=== PATIENT | male | born 1945 | race Caucasian/White ===

== ENCOUNTER 2017-10-15 17:20 | Emergency (ER) | payer MEDICARE, BC ==
[2017-10-15 17:30] VITALS: BP 140/73
[2017-10-15 18:18] LABS: APPEARANCE,URINE CLOUDY; BILIRUBIN,URINE NEGATIVE (NEGATIVE); COLOR,URINE RED; GLUCOSE, URINE NEGATIVE (NEGATIVE); KETONES,URINE NEGATIVE (NEGATIVE); LEUKOCYTE ESTERASE,URINE TRACE (NEGATIVE); NITRITE,URINE NEGATIVE (NEGATIVE); PROTEIN,URINE 100 mg/dL (NEGATIVE); URINE SPECIFIC GRAVITY 1.014; UROBILINOGEN,URINE NEGATIVE mg/dL (<2.0)
--- NOTE | 2017-10-15 18:34 | ER Document Report ---
ED General - General Chief Complaint: Urinary Problem Stated Complaint: BLOOD IN URINE Time Seen by Provider: 10/15/17 17:48 Mode of Arrival: Ambulatory Information source: Patient Notes: 72-year-old male presents with complaints of hematuria. Patient notes symptoms started this afternoon suddenly. Patient notes that he had urinary tract symptoms over the past couple weeks but was seen by his primary care physician told he did not have UTI notes her symptoms improved and then today suddenly there was blood. He denies any fevers or chills admits to a tingling sensation in his urethra. He denies any difficulty urinating denies any pain TRAVEL OUTSIDE OF THE [place] IN LAST 30 DAYS: No - HPI Onset: This afternoon Onset/Duration: Sudden Quality of pain: Burning Severity: Mild Pain Level: 1 Associated symptoms: Other Exacerbated by: Other - Urination Relieved by: Denies Similar symptoms previously: No Recently seen / treated by doctor: Yes - Related Data Allergies/Adverse Reactions: No Known Allergies Allergy (Verified 09/11/13 15:38) Past Medical History - Social History Smoking Status: Current Every Day Smoker Cigarette use (# per day): Yes Chew tobacco use (# tins/day): No Smoking Education Provided: No Family History: Reviewed & Not Pertinent Patient has suicidal ideation: No Patient has homicidal ideation: No - Past Medical History Cardiac Medical History: Reports: Hx Hypercholesterolemia, Hx Hypertension Denies: Hx Coronary Artery Disease, Hx Heart Attack Pulmonary Medical History: Denies: Hx Asthma, Hx Bronchitis, Hx COPD, Hx Pneumonia Neurological Medical History: Denies: Hx Cerebrovascular Accident, Hx Seizures Renal/ Medical History: Denies: Hx Peritoneal Dialysis GI Medical History: Denies: Hx Hepatitis, Hx Hiatal Hernia, Hx Ulcer Musculoskeltal Medical History: Reports Hx Arthritis Infectious Medical History: Denies: Hx Hepatitis Past Surgical History: Reports: Hx Oral Surgery, Hx Orthopedic Surgery - knee replacement, shoulder. Denies: Hx Open Heart Surgery, Hx Pacemaker - Immunizations Hx Diphtheria, Pertussis, Tetanus Vaccination: Yes Review of Systems - Review of Systems Notes: REVIEW OF SYSTEMS: CONSTITUTIONAL : Denies fever, chills, or sweats. Denies recent illness. EENT: Denies eye, ear, throat, or mouth pain or symptoms. Denies nasal or sinus congestion or discharge. Denies throat, tongue, or mouth swelling or difficulty swallowing. CARDIOVASCULAR: Denies chest pain. Denies palpitations or racing or irregular heart beat. Denies ankle edema. RESPIRATORY: Denies cough, cold, or chest congestion. Denies shortness of breath, difficulty breathing, or wheezing. GASTROINTESTINAL: Denies abdominal pain or distention. Denies nausea, vomiting , or diarrhea. Denies blood in vomitus, stools, or per rectum. Denies black, tarry stools. Denies constipation. GENITOURINARY: Admits to blood in urine, burning upon urination MUSCULOSKELETAL: Denies back or neck pain or stiffness. Denies joint pain or swelling. SKIN: Denies rash, lesions or sores. HEMATOLOGIC : Denies easy bruising or bleeding. LYMPHATIC: Denies swollen, enlarged glands. NEUROLOGICAL: Denies confusion or altered mental status. Denies passing out or loss of consciousness. Denies dizziness or lightheadedness. Denies headache. Denies weakness or paralysis or loss of use of either side. Denies problems with gait or speech. Denies sensory loss, numbness, or tingling. Denies seizures. PSYCHIATRIC: Denies anxiety or stress. Denies depression, suicidal ideation, or homicidal ideation. ALL OTHER SYSTEMS REVIEWED AND NEGATIVE. Dictation was performed using [employer] voice recognition software PHYSICAL EXAMINATION: GENERAL: Well-appearing, well-nourished and in no acute distress. HEAD: Atraumatic, normocephalic. EYES: Pupils equal round and reactive to light, extraocular movements intact, sclera anicteric, conjunctiva are normal. ENT: Nares patent, oropharynx clear without exudates. Moist mucous membranes. NECK: Normal range of motion, supple without lymphadenopathy LUNGS: Breath sounds clear to auscultation bilaterally and equal. No wheezes rales or rhonchi. HEART: Regular rate and rhythm without murmurs ABDOMEN: Soft, nontender, nondistended abdomen. No guarding, no rebound. No masses appreciated. Musculoskeletal: Normal range of motion, no pitting or edema. No cyanosis. NEUROLOGICAL: Cranial nerves grossly intact. Normal speech, normal gait. Normal sensory, motor exams PSYCH: Normal mood, normal affect. SKIN: Warm, Dry, normal turgor, no rashes or lesions noted. Physical Exam - Vital signs Vitals: Temp Pulse Resp BP Pulse Ox 97.8 F 78 22 H 140/73 H 96 10/15/17 17:29 10/15/17 17:29 10/15/17 17:29 10/15/17 17:29 10/15/17 17:29 Course - Re-evaluation Re-evalutation: 10/15/17 18:33 Urinalysis is consistent with a UTI as well as hematuria, CT has been ordered to rule out any intra-abdominal masses 10/15/17 18:59 bladder mass noted on ct 6.4 cm 10/15/17 19:[address] Dias, who requests a mckenna placement, 10/15/17 21:05 Explained to the patient about this mass, we discussed the concerns patient otherwise is stable Mckenna was placed with a coud, I will have him follow-up with her urologist for further care Patient will be treated with Cipro for UTI After performing a Medical Screening Examination, I estimate there is LOW risk for ACUTE APPENDICITIS, BOWEL OBSTRUCTION, ACUTE CHOLECYSTITIS, PERFORATED DIVERTICULITIS, INCARCERATED HERNIA, PANCREATITIS, TESTICULAR TORSION or PERFORATED ULCER, thus I consider the discharge disposition reasonable. Also, there is no evidence or peritonitis, sepsis, or toxicity. I have reevaluated this patient multiple times and no significant life threatening changes are noted. The patient and I have discussed the diagnosis and risks, and we agree with discharging home with close follow-up with the understanding that symptoms and presentations can change. We also discussed returning to the Emergency Department immediately if new or worsening symptoms occur. We have discussed the symptoms which are most concerning (e.g., bloody stool, fever, changing or worsening pain, intractable vomiting - standard verbal up date) that necessitate immediate return. - Vital Signs Vital signs: Temp Pulse Resp BP Pulse Ox 97.8 F 78 22 H 140/73 H 96 10/15/17 17:29 10/15/17 17:29 10/15/17 17:29 10/15/17 17:29 10/15/17 17:29 - Laboratory Result Diagrams: 10/15/17 19:18 10/15/17 19:18 Laboratory results interpreted by me: 10/15/17 10/15/17 17:50 19:18 Chloride 108 H Carbon Dioxide 20 L BUN 23 H ALT 19 L Urine Protein 100 H Urine Blood LARGE H Ur Leukocyte Esterase TRACE H - Diagnostic Test Radiology reviewed: Image reviewed, Reports reviewed - CT results handed to the patient concerning for mass in the bladder Discharge - Discharge Clinical Impression: Bladder mass Hematuria Qualifiers: Hematuria type: unspecified type Qualified Code(s): R31.9 - Hematuria, unspecified UTI (urinary tract infection) Qualifiers: Urinary tract infection type: acute cystitis Hematuria presence: with hematuria Qualified Code(s): N30.01 - Acute cystitis with hematuria Condition: Stable Disposition: HOME, SELF-CARE Instructions: Urinary Tract Infection ([facility]) Additional Instructions: Dr. Robert Babin MD [address] Prescriptions: Ciprofloxacin HCl [Cipro 500 mg Tablet] 500 mg PO BID #20 tablet Referrals: [facility] [Provider Group] - Follow up as needed
--- NOTE | 2017-10-15 18:53 | RADIOLOGY REPORT (SQ) ---
EXAM DESCRIPTION: CT ABD/PELVIS NO ORAL OR IV COMPLETED DATE/TIME: 10/15/2017 6:23 pm REASON FOR STUDY: hematuria COMPARISON: None. TECHNIQUE: CT scan of the abdomen and pelvis performed without intravenous or oral contrast. Images reviewed with lung, soft tissue, and bone windows. Reconstructed coronal and sagittal MPR images revi ewed. All images stored on PACS. All CT scanners at this facility use dose modulation, iterative reconstruction, and/or weight based d osing when appropriate to reduce radiation dose to as low as reasonably achievable (ALARA). [facility]: Dose Right [facility]: CareDose [facility]: Dose Right [facility]: Teradose 4D [facility]: [employer] RADIATION DOSE: CT Rad equipment meets quality standard of care and radiation dose reduction techniq ues were employed. CTDIvol: 10.3 mGy. DLP: 590 mGy-cm.mGy. LIMITATIONS: None. FINDINGS: LOWER CHEST: No significant findings. No nodules or infiltrates. NON-CONTRASTED LIVER, SPLEEN, ADRENALS: Small inferior right liver cyst. Calcified granulomas scatte red throughout the spleen. Evaluation limited by lack of IV contrast. No identified significant mass es. PANCREAS: No masses. No peripancreatic inflammatory changes. GALLBLADDER: No identified stones by CT criteria. No inflammatory changes to suggest cholecystitis. RIGHT KIDNEY AND URETER: No suspicious masses. Assessment limited by lack of IV contrast. Small cecelia cifications. No hydronephrosis or hydroureter. LEFT KIDNEY AND URETER: No suspicious masses. Assessment limited by lack of IV contrast. Small calc ifications. No hydronephrosis or hydroureter. AORTA AND RETROPERITONEUM: No aneurysm. No retroperitoneal masses or adenopathy. BOWEL AND PERITONEAL CAVITY: No obvious masses or inflammatory changes. No free fluid. APPENDIX: Normal. PELVIS, BLADDER, AND ABDOMINAL WALL:No free fluid. 6.4 cm multilobulated endoluminal bladder mass wi th some small marginal calcifications. BONES: No acute findings. OTHER: No other significant finding. IMPRESSION: 6.4 cm multilobulated endoluminal bladder mass with some small marginal calcifications. Urology consultation recommended. COMMENT: Quality ID # [id number]: Final reports with documentation of one or more dose reduction techniques (e.g., Automated exposure control, adjustment of the mA and/or kV according to patient size, use of iterative reconstruction technique) TECHNICAL DOCUMENTATION: JOB ID: [id number] [place]-72 2010 [facility], [place] [facility] [employer]- All Rights Reserved
[2017-10-15 19:39] LABS: ABSOLUTE BASOPHILS # (AUTO) 0.1 10^3/uL (0.0-0.2); ABSOLUTE EOSINOPHILS # (AUTO) 0.3 10^3/uL (0.0-0.6); ABSOLUTE MONOCYTES (AUTO) 0.8 10^3/uL (0.1-1.4); ABSOLUTE NEUT (AUTO) 5.6 10^3/uL (1.7-8.2); BASOPHILS % (AUTO) 0.7 % (0-2); EOSINOPHILS % (AUTO) 3.3 % (0-6); HEMATOCRIT 45.5 % (37.9-51.0); HEMOGLOBIN 15.9 g/dL (13.5-17.0); LYMPHOCYTES % (AUTO) 30.5 % (13-45); MEAN CORPUSCULAR HEMOGLOBIN 32.3 pg (27.0-33.4); MEAN CORPUSCULAR VOLUME 92 fl (80-97); MONOCYTES % (AUTO) 7.8 % (3-13); PLATELET COUNT 284 10^3/uL (150-450); RED BLOOD COUNT 4.94 10^6/uL (4.35-5.55); RED CELL DISTRIBUTION WIDTH 13.9 % (11.5-14.0); SEGMENTED NEUTROPHILS % (AUTO) 57.7 % (42-78); TOTAL CELLS COUNTED % (AUTO) 100 %; WHITE BLOOD COUNT 9.7 10^3/uL (4.0-10.5)
[2017-10-15 20:04] LABS: ALANINE AMINOTRANSFERASE 19 U/L (21-72); ALBUMIN 4.2 g/dL (3.5-5.0); ALKALINE PHOSPHATASE 86 U/L (38-126); ANION GAP 12 (5-19); ASPARTATE AMINO TRANSFERASE 20 U/L (17-59); BILIRUBIN,DIRECT 0.4 mg/dL (0.0-0.4); BILIRUBIN,TOTAL 0.4 mg/dL (0.2-1.3); BLOOD UREA NITROGEN 23 mg/dL (7-20); CALCIUM 9.6 mg/dL (8.4-10.2); CARBON DIOXIDE 20 mmol/L (22-30); CHLORIDE 108 mmol/L (98-107); GLUCOSE 88 mg/dL (75-110); POTASSIUM 4.6 mmol/L (3.6-5.0); SODIUM 140.1 mmol/L (137-145); TOTAL PROTEIN 7.2 g/dL (6.3-8.2)
== END 2017-10-15 20:15 | disposition home or self-care (01) ==
LOC: ER 17:20
DX: N30.01 Acute cystitis with hematuria (principal); N32.89 Other specified disorders of bladder; F17.210 Nicotine dependence, cigarettes, uncomplicated; E78.00 Pure hypercholesterolemia, unspecified; I10 Essential (primary) hypertension; Z96.659 Presence of unspecified artificial knee joint
CPT/HCPCS: 36415; 51702; 74176; 80053; 81001; 85025; 99284

== ENCOUNTER → 2018-03-02 | Outpatient (CLI) | payer MEDICARE, BC ==
[2018-03-02 09:56] LABS: HEMATOCRIT 47.4 % (37.9-51.0); HEMOGLOBIN 16.2 g/dL (13.5-17.0); MEAN CORPUSCULAR HGB CONC 34.1 g/dL (32.0-36.0); MEAN CORPUSCULAR VOLUME 91 fl (80-97); PLATELET COUNT 250 10^3/uL (150-450); RED BLOOD COUNT 5.21 10^6/uL (4.35-5.55); RED CELL DISTRIBUTION WIDTH 14.3 % (11.5-14.0); WHITE BLOOD COUNT 5.9 10^3/uL (4.0-10.5)
--- NOTE | 2018-03-02 09:58 | EKG REPORT ---
SEVERITY:- ABNORMAL ECG - SINUS RHYTHM LEFT ANTERIOR FASCICULAR BLOCK : Confirmed by: Samantha Garcia MD 02-Mar-2018 09:57:30
[2018-03-02 10:03] LABS: INTERNATIONAL RATION (INR) 0.94; PARTIAL THROMBOPLASTIN TIME 32.1 SEC (23.5-35.8)
[2018-03-02 10:36] LABS: ANION GAP 12 (5-19); BLOOD UREA NITROGEN 16 mg/dL (7-20); CALCIUM 9.2 mg/dL (8.4-10.2); CARBON DIOXIDE 24 mmol/L (22-30); CHLORIDE 109 mmol/L (98-107); GLUCOSE 101 mg/dL (75-110); POTASSIUM 4.8 mmol/L (3.6-5.0); SODIUM 144.6 mmol/L (137-145)
== END ==
LOC: OD 08:21
PROVIDERS: ATTEND Urology
DX: Z01.810 Encounter for preprocedural cardiovascular examination (principal); Z01.812 Encounter for preprocedural laboratory examination; Z01.818 Encounter for other preprocedural examination; D49.4 Neoplasm of unspecified behavior of bladder
CPT/HCPCS: 36415; 80048; 85027; 85610; 85730; 87086; 93005; 93010

== ENCOUNTER → 2018-06-25 | Outpatient (CLI) | payer MEDICARE, BC | LOC: OD 08:35 | PROVIDERS: ATTEND Urology | DX: N40.1 Benign prostatic hyperplasia with lower urinary tract symptoms (principal); R35.0 Frequency of micturition | CPT/HCPCS: 36415; 84153 ==

== ENCOUNTER 2019-10-10 10:10 | Inpatient (IN) | payer MEDICARE, BC ==
[2019-10-10] MEDS ORDERED: ONDANSETRON HCL INJ/PF 4 MG/2 ML SDV IV ONE ×2 (10:44→11:49)
[2019-10-10] MEDS ORDERED: NORMAL SALINE 1000 ML 1,000 ML IV ONE ×4 (10:45→15:16)
--- NOTE | 2019-10-10 10:47 | ER Document Report ---
ED Medical Screen (RME) - General Chief Complaint: Flank Pain Stated Complaint: SHOULDER PAIN, BACK PAIN,FEVER Time Seen by Provider: 10/10/19 10:40 Primary Care Provider: TAWNY,REED [Primary Care Provider] - Follow up as needed Notes: Patient is a 74-year-old male who presents emergency department with a chief complaint of flank pain. Patient reports he is currently being treated for bladder cancer. Last chemo treatment was Thursday at [facility]. He reports on Thursday he developed bilateral flank pain that radiates into his shoulders. Patient reports fever, chills, urinary frequency and urgency. Patient reports generalized fatigue. Patient has vomited 1-2 times since yesterday. Patient was taking Bactrim but his doctor switched him to Macrobid for UTI. TRAVEL OUTSIDE OF THE [place] IN LAST 30 DAYS: No - Related Data Allergies/Adverse Reactions: No Known Allergies Allergy (Verified 10/10/19 10:28) Home Medications: [employer] Past Medical History - Social History Chew tobacco use (# tins/day): No Frequency of alcohol use: Rare Drug Abuse: None - Past Medical History Cardiac Medical History: Reports: Hx Hypercholesterolemia, Hx Hypertension Denies: Hx Coronary Artery Disease, Hx Heart Attack Pulmonary Medical History: Denies: Hx Asthma, Hx Bronchitis, Hx COPD, Hx Pneumonia Neurological Medical History: Denies: Hx Cerebrovascular Accident, Hx Seizures Renal/ Medical History: Denies: Hx Peritoneal Dialysis GI Medical History: Denies: Hx Hepatitis, Hx Hiatal Hernia, Hx Ulcer Musculoskeltal Medical History: Reports Hx Arthritis Infectious Medical History: Denies: Hx Hepatitis Past Surgical History: Reports: Hx Oral Surgery, Hx Orthopedic Surgery - knee replacement, shoulder. Denies: Hx Open Heart Surgery, Hx Pacemaker - Immunizations Hx Diphtheria, Pertussis, Tetanus Vaccination: Yes Physical Exam - Vital signs Vitals: Temp Pulse Resp BP Pulse Ox 99.5 F 91 21 H 113/65 100 10/10/19 10:24 10/10/19 10:24 10/10/19 10:24 10/10/19 10:24 10/10/19 10:24 Course - Re-evaluation Re-evalutation: 10/10/19 10:46 Patient dry heaving in triage. Will initiate blood work, IV fluids, antinausea medication. Family denies history of congestive heart failure. Patient's not tachycardic, hypotensive or febrile currently. Last dose of ibuprofen was last night at 8 PM. I have greeted and performed a rapid initial assessment of this patient. A comprehensive ED assessment and evaluation of the patient, analysis of test results and completion of the medical decision making process will be conducted by additional ED providers. - Vital Signs Vital signs: Temp Pulse Resp BP Pulse Ox 99.5 F 91 21 H 113/65 100 10/10/19 10:24 10/10/19 10:24 10/10/19 10:24 10/10/19 10:10/10/19 10:24 Doctor's Discharge - Discharge Referrals: LOCALMD,NO [Primary Care Provider] - Follow up as needed
[2019-10-10 11:22] LABS: HEMATOCRIT 34.1 % (37.9-51.0); HEMOGLOBIN 11.8 g/dL (13.5-17.0); MEAN CORPUSCULAR HEMOGLOBIN 32.6 pg (27.0-33.4); MEAN CORPUSCULAR HGB CONC 34.5 g/dL (32.0-36.0); MEAN CORPUSCULAR VOLUME 95 fl (80-97); PLATELET COUNT 383 10^3/uL (150-450); RED BLOOD COUNT 3.61 10^6/uL (4.35-5.55); RED CELL DISTRIBUTION WIDTH 14.2 % (11.5-14.0); WHITE BLOOD COUNT 17.1 10^3/uL (4.0-10.5)
[2019-10-10 11:39] LABS: APPEARANCE,URINE CLOUDY; BILIRUBIN,URINE NEGATIVE (NEGATIVE); GLUCOSE, URINE NEGATIVE (NEGATIVE); KETONES,URINE TRACE mg/dL (NEGATIVE); LEUKOCYTE ESTERASE,URINE LARGE (NEGATIVE); NITRITE,URINE NEGATIVE (NEGATIVE); PROTEIN,URINE 100 mg/dL (NEGATIVE); URINE SPECIFIC GRAVITY 1.014; UROBILINOGEN,URINE NEGATIVE mg/dL (<2.0)
[2019-10-10 11:40] LABS: COLOR,URINE YELLOW
[2019-10-10 11:43] LABS: ALBUMIN 3.7 g/dL (3.5-5.0); ALKALINE PHOSPHATASE 79 U/L (38-126); ANION GAP 14 (5-19); ASPARTATE AMINO TRANSFERASE 66 U/L (17-59); BILIRUBIN,DIRECT 0.3 mg/dL (0.0-0.4); BILIRUBIN,TOTAL 1.3 mg/dL (0.2-1.3); BLOOD UREA NITROGEN 18 mg/dL (7-20); CALCIUM 9.2 mg/dL (8.4-10.2); CARBON DIOXIDE 19 mmol/L (22-30); CHLORIDE 101 mmol/L (98-107); GLUCOSE 149 mg/dL (75-110); POTASSIUM 4.9 mmol/L (3.6-5.0); TOTAL PROTEIN 7.1 g/dL (6.3-8.2)
[2019-10-10] MEDS ORDERED: FENTANYL CITRATE INJ/PF 100 MCG/2 ML AMPUL IV ONE ×2 (11:49→14:30)
[2019-10-10 11:57] LABS: ABSOLUTE LYMPHOCYTES# (MANUAL) 0.5 10^3/uL (0.5-4.7); ABSOLUTE MONOCYTES # (MANUAL) 0.9 10^3/uL (0.1-1.4); BAND NEUTROPHILS % (MANUAL) 1 % (3-5); BASOPHILS % (MANUAL) 0 % (0-2); EOSINOPHILS % (MANUAL) 0 % (0-6); LYMPHOCYTES % (MANUAL) 3 % (13-45); MONOCYTES % (MANUAL) 5 % (3-13); SEGMENTED NEUTROPHILS % (MAN) 91 % (42-78); TOTAL CELLS COUNTED 100; TOXIC VACUOLATION PRESENT
[2019-10-10 11:58] LABS: ANISOCYTOSIS SLIGHT; PLATELET COMMENT ADEQUATE; PLATELET LARGE PRESENT; TOXIC GRANULATION SLIGHT
[2019-10-10] MEDS ORDERED: CEFTRIAXONE 1 GM/D5W RTU 1 GM/50 ML RTUPB IV ONE (13:02)
--- NOTE | 2019-10-10 13:05 | RADIOLOGY REPORT (SQ) ---
EXAM DESCRIPTION: CT ABD/PELVIS WITH IV ONLY COMPLETED DATE/TIME: 10/10/2019 12:41 pm REASON FOR STUDY: bladder cancer/ n/v abd pain COMPARISON: CT of the abdomen and pelvis without contrast from 10/15/2017. TECHNIQUE: CT scan of the abdomen and pelvis performed using helical scanning technique with dynamic intravenous contrast injection. No oral contrast. Images reviewed with lung, soft tissue, and bone windows. Reconstructed coronal and sagittal MPR images reviewed. Delayed images for evaluation of the urinary system also acquired. All images stored on PACS. All CT scanners at this facility use dose modulation, iterative reconstruction, and/or weight based d osing when appropriate to reduce radiation dose to as low as reasonably achievable (ALARA). [facility]: Dose Right [facility]: CareDose [facility]: Dose Right [facility]: Teradose 4D [facility]: Neotropix CONTRAST TYPE AND DOSE: Contrast/concentration: Isovue 350.00 mg/ml; Total Contrast Delivered: 81.3 ml; Total Saline Delivered: 20.0 ml RENAL FUNCTION: Creatinine 1.13 milligrams/deciliter LIMITATIONS: None. FINDINGS: LOWER CHEST: Refer to the separate report of the CT of the chest. LIVER: The morphology of the liver is non cirrhotic. The subcentimeter hypodensity in the hepatic do me is too small to characterize. There is no dilatation of the intrahepatic bile ducts. The punctat e calcifications in the hepatic dome could represent granulomata. SPLEEN: Calcified splenic granulomata. There is no splenomegaly or splenic mass. PANCREAS: No acute abnormality. GALLBLADDER: No abnormality that is apparent on CT. ADRENAL GLANDS: No mass or asymmetry. RIGHT KIDNEY AND URETER: Mild inflammatory stranding of the perinephric fat and hydroureter without h ydronephrosis, nephrolithiasis or ureterolithiasis. There is no solid renal mass. LEFT KIDNEY AND URETER: Mild inflammatory stranding of the perinephric fat and hydroureter without hy dronephrosis, nephrolithiasis or ureterolithiasis. The 1.7 x 1.4 cm hypodensity in the lateral live x of the lower pole could represent a simple cyst. There is no solid renal mass. 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 RETROPERITONEUM: No retroperitoneal adenopathy, hemorrhage or mass. BOWEL AND PERITONEAL CAVITY: No bowel obstruction, bowel wall thickening or pericolonic/ perienteric inflammation. There is no mesenteric adenopathy, free intraperitoneal fluid or mesenteric/ omental i nflammation APPENDIX: Normal. PELVIS: The prostate gland is enlarged and heterogeneous. The wall of the urinary bladder is asymmet rically thickened. 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 There is no acute fracture or osseous lesion. OTHER: No other finding. IMPRESSION: 1. Mild bilateral inflammatory stranding of the perinephric fat and hydroureter without hydronephrosis, nephrolithiasis or ureterolithiasis. The wall of the urinary bladder is asymmetrical ly thickened - it is unclear if the bladder wall thickening represents the sequela of prior treatment or an acute cystitis/ascending urinary tract infection. Correlation with urinalysis is recommended. 2. 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 TECHNICAL DOCUMENTATION: JOB ID: [id number] Quality ID # [id number]: Final reports with documentation of one or more dose reduction techniques (e.g., Au tomated exposure control, adjustment of the mA and/or kV according to patient size, use of iterative reconstruction technique) 2010 [employer]- All Rights Reserved Reading location - IP/workstation name: [email or web address]
--- NOTE | 2019-10-10 13:23 | RADIOLOGY REPORT (SQ) ---
EXAM DESCRIPTION: CT CHEST WITH COMPLETED DATE/TIME: 10/10/2019 12:41 pm REASON FOR STUDY: pain in back/ shoulders COMPARISON: None. TECHNIQUE: CT scan of the chest performed using helical scanning technique with dynamic intravenous contrast injection. Images reviewed with lung, soft tissue and bone windows. Reconstructed coronal and sagittal MPR and MIP images reviewed. All images stored on PACS. All CT scanners at this facility use dose modulation, iterative reconstruction, and/or weight based d osing when appropriate to reduce radiation dose to as low as reasonably achievable (ALARA). [facility]: Dose Right [facility]: CareDose [facility]: Dose Right [facility]: Teradose 4D [facility]: [employer] CONTRAST TYPE AND DOSE: 89 mL Omnipaque 350- low osmolar. RENAL FUNCTION: Creatinine 1.13 milligrams/deciliter RADIATION DOSE: CT Rad equipment meets quality standard of care and radiation dose reduction techniq ues were employed. CTDIvol: 10.9 - 12.0 mGy. DLP: 1520 mGy-cm. . LIMITATIONS: None. FINDINGS: LUNGS AND PLEURA: There is mild to moderate upper lobe predominant centrilobular emphysema . The trachea main bronchi are patent. There is no bronchiectasis or segmental mucus plugging. The re is no consolidation, ground-glass opacification, pleural effusion or solid noncalcified greater th an 6 mm pulmonary nodule. HILAR AND MEDIASTINAL STRUCTURES: There are calcified nonenlarged mediastinal and right hilar lymph nodes. HEART AND VASCULAR STRUCTURES: No aneurysm or dissection of the abdominal aorta. No cardiomegaly or pericardial effusion. HARDWARE: None in the chest. UPPER ABDOMEN: Refer to the separate report of the CT of the abdomen. THYROID AND OTHER SOFT TISSUES: No masses or adenopathy. BONES: No acute findings. OTHER: No other finding. IMPRESSION: No acute intra-abdominal abnormality. TECHNICAL DOCUMENTATION: JOB ID: [id number] Quality ID # [id number]: Final reports with documentation of one or more dose reduction techniques (e.g., Au tomated exposure control, adjustment of the mA and/or kV according to patient size, use of iterative reconstruction technique) 2010 [employer]- All Rights Reserved Reading location - IP/workstation name: [email or web address]
--- NOTE | 2019-10-10 13:31 | ER Document Report ---
Entered by JERRICA LIVE SCRIBE 10/10/19 [id number] Acting as scribe for:DAVIE COSBY DO ED General - General Chief Complaint: Flank Pain Stated Complaint: SHOULDER PAIN, BACK PAIN,FEVER Time Seen by Provider: 10/10/19 10:40 Primary Care Provider: REED HECTOR [NO LOCAL MD] - Follow up as needed Mode of Arrival: Ambulatory Information source: Patient Notes: This 74 year old male patient with bladder cancer followed by heme-onc at [facility] presents to the emergency department today with complaints of vomiting and generalized myalgias for the last several days. Patient states the first symptom he had was upper back and left shoulder pain and the vomiting, fevers, and chills began shortly after. Patient denies any diarrhea, abdominal pain, chest pain, or shortness of breath. TRAVEL OUTSIDE OF THE [place] IN LAST 30 DAYS: No - Related Data Allergies/Adverse Reactions: No Known Allergies Allergy (Verified 10/10/19 10:28) Home Medications: [employer] Past Medical History - General Information source: Patient - Social History Smoking Status: Former Smoker Cigarette use (# per day): No Chew tobacco use (# tins/day): No Frequency of alcohol use: Rare Drug Abuse: None Lives with: Family Family History: Reviewed & Not Pertinent Patient has suicidal ideation: No Patient has homicidal ideation: No - Past Medical History Cardiac Medical History: Reports: Hx Hypercholesterolemia, Hx Hypertension Pulmonary Medical History: Malignancy Medical History: Reports Other - Bladder cancer Musculoskeletal Medical History: Reports Hx Arthritis Past Surgical History: Reports: Hx Oral Surgery, Hx Orthopedic Surgery - knee replacement, shoulder - Immunizations Hx Diphtheria, Pertussis, Tetanus Vaccination: Yes Review of Systems - Review of Systems Constitutional: See HPI, Chills, Fever EENT: No symptoms reported Cardiovascular: denies: Chest pain Respiratory: denies: Short of breath Gastrointestinal: See HPI, Vomiting. denies: Abdominal pain, Diarrhea Genitourinary: No symptoms reported Male Genitourinary: No symptoms reported Musculoskeletal: See HPI, Muscle pain, Muscle stiffness Skin: No symptoms reported Hematologic/Lymphatic: No symptoms reported Neurological/Psychological: No symptoms reported -: Yes All other systems reviewed and negative Physical Exam - Vital signs Vitals: Temp Pulse Resp BP Pulse Ox 99.5 F 91 21 H 113/65 100 10/10/19 10:24 10/10/19 10:24 10/10/19 10:24 10/10/19 10:24 10/10/19 10:24 - Notes Notes: Physical Exam: General: Alert, appears uncomfortable. HEENT: Normocephalic. Atraumatic. PERRL. Extraocular movements intact. Oropharynx clear. Dry mucous membranes. Neck: Supple. Non-tender. Respiratory: No respiratory distress. Clear and equal breath sounds bilaterally. Cardiovascular: Regular rate and rhythm. Abdominal: Normal Inspection. Non-tender. No distension. Normal Bowel Sounds. Back: No gross abnormalities. Extremities: Moves all four extremities. Upper extremities: Normal inspection. Normal ROM. Lower extremities: Normal inspection. No edema. Normal ROM. Neurological: Normal cognition. AAOx4. Normal speech. Psychological: Normal affect. Normal Mood. Skin: Warm. Dry. Normal color. Course - Re-evaluation Re-evalutation: 10/10/19 13:38 MDM 74 year old male with bladder cancer seen with nausea vomiting and fever. Workup here is consistent with Pyelonephritis. Feels better after treatment here. - Vital Signs Vital signs: Temp Pulse Resp BP Pulse Ox 99.5 F 91 21 H 113/65 100 10/10/19 10:24 10/10/19 10:24 10/10/19 10:24 10/10/19 10:24 10/10/19 10:24 - Laboratory Result Diagrams: 10/10/19 11:03 10/10/19 11:03 Laboratory results interpreted by me: 10/10/19 10/10/19 10/10/19 11:03 11:03 11:03 WBC 17.1 H RBC 3.61 L Hgb 11.8 L Hct 34.1 L RDW 14.2 H Seg Neuts % (Manual) 91 H Band Neutrophils % 1 L Lymphocytes % (Manual) 3 L Abs Neuts (Manual) 15.7 H Sodium 133.5 L Carbon Dioxide 19 L Glucose 149 H AST 66 H ALT 78 H Urine Protein 100 H Urine Ketones TRACE H Urine Blood MODERATE H Ur Leukocyte Esterase LARGE H - Diagnostic Test Radiology reviewed: Reports reviewed - EKG Interpretation by Me EKG shows normal: Sinus rhythm Rate: Normal Rhythm: NSR [place]/QRS: Left axis deviation - NSR Left axis [address] elevation or depression my interpretation. Discharge - Discharge Clinical Impression: Pyelonephritis Condition: Good Disposition: ADMITTED OBSERVATION Admitting Provider: Eduardo (Hospitalist) Unit Admitted: Medical Floor Referrals: LOCALMD,NO [NO LOCAL MD] - Follow up as needed I personally performed the services described in the documentation, reviewed and edited the documentation which was dictated to the scribe in my presence, and it accurately records my words and actions.
[2019-10-10] MEDS ORDERED: ONDANSETRON HCL INJ/PF 4 MG/2 ML SDV IV PRN (15:07)
[2019-10-10] MEDS ORDERED: PROMETHAZINE HCL INJ 25 MG/1 ML VIAL IV PRN (15:07)
[2019-10-10] MEDS ORDERED: VANCOMYCIN HCL INJ 1000 MG VIAL IV ONE (15:16)
[2019-10-10] MEDS ORDERED: LEVOFLOXACIN 750 MG/D5W RTU 750 MG/150 ML RTUPB IV ONE (15:19)
[2019-10-10] MEDS ORDERED: OXYBUTYNIN CHLORIDE 5 MG TABLET PO PRN (15:20)
--- NOTE | 2019-10-10 15:40 | PDOC H&P ---
History of Present Illness Admission Date/PCP: 10/10/19 13:47 NAWAF HERRON DO Patient complains of: Chills, myalgias, dysuria History of Present Illness: ZACH DUMONT is a 74 year old male with a history of bladder cancer currently receiving intravesicular gemcitabine every week last dose on Thursday, hypertension, who presents to the hospital with complains of significant chills and fever which began on Thursday. Patient also endorses some dysuria. Denies polyuria or urinary urgency. Denies abdominal pain but does admits to back pain involving his upper back as well as his flanks. Patient denies any headaches. Of note patient was diagnosed with bladder cancer 2 years ago and follows with a urologist at [facility] where he gets his chemotherapy via cystoscopy with intravesicular gemcitabine administration which was done last on Thursday. Patient also admits to having urinary tract infection and is currently being treated with nitrofurantoin which he started after a course of Bactrim. Patient also complains of some shoulder pain bilaterally but currently rates it 2/5. Patient currently having rigors at time of my assessment. Being admitted for concern for pyelonephritis. Past Medical History Cardiac Medical History: Reports: Hyperlipidema, Hypertension Denies: Congestive Heart Failure, Coronary Artery Disease, Myocardial Infarction Pulmonary Medical History: Denies: Asthma, Bronchitis, Chronic Obstructive Pulmonary Disease (COPD), Pneumonia Neurological Medical History: Denies: Seizures Malignancy Medical History: Reports: Other - Bladder cancer GI Medical History: Denies: Hepatitis, Hiatal Hernia Musculoskeltal Medical History: Reports: Arthritis Hematology: Denies: Anemia, Sickle Cell Disease Past Surgical History Past Surgical History: Reports: Orthopedic Surgery - knee replacement, shoulder Denies: Pacemaker Social History Lives with: Family Smoking Status: Former Smoker Electronic Cigarette use?: No Hx Recreational Drug Use: No - Advance Directive Resuscitation Status: Full Code Family History Family History: Hypertension Parental Family History Reviewed: Yes Children Family History Reviewed: NA Sibling(s) Family History Reviewed.: NA Medication/Allergy Home Medications: Amlodipine Besylate [Norvasc 5 mg Tablet] 5 mg PO DAILY 10/10/19 Aspirin [Ecotrin 81 mg EC Tablet] 81 mg PO DAILY 10/10/19 Fluticasone Propionate [Flonase Nasal Mcclave 50 Mcg/Mcclave 16 gm] 1 spray NAREB DAILY 10/10/19 Lisinopril 20 mg PO DAILY 10/10/19 Multivit-Min/Folic/Vit K/Lycop [One-A-Day Men's 50+ Tablet] 1 each PO DAILY 10/10/19 Naproxen Sodium [Aleve] 440 mg PO DAILY 10/10/19 Nitrofurantoin Monohyd/M-Cryst [Macrobid 100 mg Capsule] 100 mg PO DAILY 10/10/19 Oxybutynin Chloride [Oxybutynin Chloride ER] 5 mg PO DAILY 10/10/19 Tamsulosin HCl [Flomax 0.4 mg Cap.sr] 0.4 mg PO DAILY 10/10/19 Allergies/Adverse Reactions: No Known Allergies Allergy (Verified 10/10/19 10:28) Review of Systems Constitutional: PRESENT: chills, fever(s). ABSENT: headache(s) Eyes: ABSENT: visual disturbances Nose, Mouth, and Throat: ABSENT: headache(s) Cardiovascular: ABSENT: chest pain Respiratory: ABSENT: dyspnea Gastrointestinal: PRESENT: nausea, vomiting. ABSENT: abdominal pain, diarrhea Genitourinary: PRESENT: dysuria, nocturia. ABSENT: hematuria Integumentary: PRESENT: diaphoresis Neurological: ABSENT: confusion Endocrine: ABSENT: polyuria Hematologic/Lymphatic: ABSENT: easy bleeding Physical Exam Vital Signs: Temp Pulse Resp BP Pulse Ox 98.7 F 106 H 24 H 143/73 H 95 10/10/19 14:50 10/10/19 14:50 10/10/19 14:50 10/10/19 14:50 10/10/19 14:50 Intake & Output 10/09/19 10/10/19 10/11/19 06:59 06:59 06:59 Intake Total 1050 Balance 1050 Weight 78.4 kg General appearance: PRESENT: other - Currently having significant rigors Head exam: PRESENT: normocephalic Mouth exam: PRESENT: neck supple Neck exam: ABSENT: JVD Respiratory exam: PRESENT: clear to auscultation mervin, symmetrical, unlabored. ABSENT: tachypnea, wheezes Cardiovascular exam: PRESENT: +S1, +S2, tachycardia. ABSENT: irregular rhythm GI/Abdominal exam: PRESENT: normal bowel sounds, soft, other - Only minimal CVA tenderness. ABSENT: rebound, rigid, tenderness Extremities exam: ABSENT: pedal edema Musculoskeletal exam: PRESENT: other - No significant tenderness on palpation of patient's shoulders bilaterally.patient had just received fentanyl in the ER shortly before Neurological exam: PRESENT: alert, awake, oriented to person, oriented to place, oriented to time, oriented to situation. ABSENT: ataxia, aphasic Psychiatric exam: ABSENT: agitated Focused psych exam: ABSENT: pressured speech Skin exam: PRESENT: other - Flushed skin Results Laboratory Results: 10/10/19 11:03 10/10/19 11:03 10/10/19 10/10/19 10/10/19 11:03 11:03 11:03 WBC 17.1 H RBC 3.61 L Hgb 11.8 L Hct 34.1 L MCV 95 MCH 32.6 MCHC 34.5 RDW 14.2 H Plt Count 383 Seg Neutrophils % Not Reportable Sodium 133.5 L Potassium 4.9 Chloride 101 Carbon Dioxide 19 L Anion Gap 14 BUN 18 Creatinine 1.13 Est GFR ( Amer) > 60 Glucose 149 H Lactic Acid Calcium 9.2 Total Bilirubin 1.3 AST 66 H Alkaline Phosphatase 79 Total Protein 7.1 Albumin 3.7 Urine Color YELLOW Urine Appearance CLOUDY Urine pH 6.0 Ur Specific [place] 1.014 Urine Protein 100 H Urine Glucose (UA) NEGATIVE Urine Ketones TRACE H Urine Blood MODERATE H Urine Nitrite NEGATIVE Ur Leukocyte Esterase LARGE H Urine WBC (Auto) >182 Urine RBC (Auto) 12 10/10/19 12:10 WBC RBC Hgb Hct MCV MCH MCHC RDW Plt Count Seg Neutrophils % Sodium Potassium Chloride Carbon Dioxide Anion Gap BUN Creatinine Est GFR ( Amer) Glucose Lactic Acid 2.1 Calcium Total Bilirubin AST Alkaline Phosphatase Total Protein Albumin Urine Color Urine Appearance Urine pH Ur Specific [place] Urine Protein Urine Glucose (UA) Urine Ketones Urine Blood Urine Nitrite Ur Leukocyte Esterase Urine WBC (Auto) Urine RBC (Auto) 10/10/19 11:03 Troponin I 0.013 Impressions: Chest CT 10/10/19 11:47 IMPRESSION: No acute intra-abdominal abnormality. Abdomen/Pelvis CT 10/10/19 11:48 IMPRESSION: 1. Mild bilateral inflammatory stranding of the perinephric fat and hydroureter without hydronephrosis, nephrolithiasis or ureterolithiasis. The wall of the urinary bladder is asymmetrically thickened - it is unclear if the bladder wall thickening represents the sequela of prior treatment or an acute cystitis/ascending urinary tract infection. Correlation with urinalysis is rec ommended. 2. 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 Assessment and Plan - Diagnosis (1) Acute pyelonephritis Is this a current diagnosis for this admission?: Yes Plan: May have been exacerbated by recent urologic manipulation Positive urinalysis with CT of the abdomen showing signs of pyelonephritis Starting on broad-spectrum antibiotics with IV Levaquin and vancomycin given current sepsis with plan to de-escalate to Levaquin only later. Blood and urine cultures pending (2) Sepsis Qualifiers: Sepsis type: sepsis due to unspecified organism Sepsis acute organ dysfunction status: without acute organ dysfunction Qualified Code(s): A41.9 - Sepsis, unspecified organism Is this a current diagnosis for this admission?: Yes Plan: Patient is actively in Rigors making me suspect possible gram-negative bacteremia with sepsis especially in light of urinary tract infection. Tachycardic and with leukocytosis but blood pressure stable. Will give fluid volume resuscitation with 2 more bags of NS bolus. Monitor vital signs and mental status. (3) Bladder cancer Qualifiers: Bladder location: unspecified site Qualified Code(s): C67.9 - Malignant neoplasm of bladder, unspecified Is this a current diagnosis for this admission?: Yes Plan: Diagnosed 2 years ago. Partial cystectomy performed in the past. Follows with urologist Dr. Familia Mckeon where he is getting intravesicular gemcitabine every Thursday for the past few weeks. (4) Hypertension Qualifiers: Hypertension type: essential hypertension Qualified Code(s): I10 - Essential (primary) hypertension Is this a current diagnosis for this admission?: Yes Plan: Lisinopril - Time Time Spent with patient: 35 or more minutes
--- NOTE | 2019-10-10 18:27 | EKG REPORT ---
SEVERITY:- OTHERWISE NORMAL ECG - SINUS RHYTHM LEFT AXIS DEVIATION : Confirmed by: Willow Poon 10-Oct-2019 18:26:50
[2019-10-10] MEDS: ACETAMINOPHEN 325 MG TABLET PO PRN (19:03)
[2019-10-10] MEDS: KETOROLAC TROMETHAMINE INJ/PF 30 MG/1 ML SDV IV PRN (20:59)
[2019-10-10] MEDS: VANCOMYCIN HCL 750 MG in DEXTROSE 5%-WATER 250 ML IV SCH (21:21)
[2019-10-10] MEDS: FLUTICASONE NASAL SPRAY 50 MCG/SPRY 120 SPRAY/16 GM NASL SCH (21:45)
[2019-10-10] MEDS ORDERED: VANCOMYCIN HCL INJ 1000 MG VIAL IV SCH (22:00)
[2019-10-11] MEDS: ACETAMINOPHEN 325 MG TABLET PO PRN ×3 (02:05→15:20)
[2019-10-11 04:36] LABS: HEMATOCRIT 26.8 % (37.9-51.0); MEAN CORPUSCULAR HEMOGLOBIN 32.3 pg (27.0-33.4); MEAN CORPUSCULAR HGB CONC 34.5 g/dL (32.0-36.0); MEAN CORPUSCULAR VOLUME 94 fl (80-97); PLATELET COUNT 289 10^3/uL (150-450); RED BLOOD COUNT 2.87 10^6/uL (4.35-5.55); RED CELL DISTRIBUTION WIDTH 14.2 % (11.5-14.0); WHITE BLOOD COUNT 13.6 10^3/uL (4.0-10.5)
[2019-10-11 04:38] LABS: HEMOGLOBIN 9.3 g/dL (13.5-17.0)
[2019-10-11 04:54] LABS: ALBUMIN 2.5 g/dL (3.5-5.0); ALKALINE PHOSPHATASE 56 U/L (38-126); ANION GAP 11 (5-19); ASPARTATE AMINO TRANSFERASE 40 U/L (17-59); BILIRUBIN,DIRECT 0.4 mg/dL (0.0-0.4); BILIRUBIN,TOTAL 0.6 mg/dL (0.2-1.3); BLOOD UREA NITROGEN 19 mg/dL (7-20); CALCIUM 7.9 mg/dL (8.4-10.2); CARBON DIOXIDE 17 mmol/L (22-30); CHLORIDE 106 mmol/L (98-107); GLUCOSE 113 mg/dL (75-110); PHOSPHORUS 2.7 mg/dL (2.5-4.5); TOTAL PROTEIN 5.2 g/dL (6.3-8.2)
[2019-10-11 05:05] LABS: ABSOLUTE LYMPHOCYTES# (MANUAL) 0.3 10^3/uL (0.5-4.7); BASOPHILS % (MANUAL) 0 % (0-2); EOSINOPHILS % (MANUAL) 0 % (0-6); LYMPHOCYTES % (MANUAL) 2 % (13-45); MONOCYTES % (MANUAL) 7 % (3-13); SEGMENTED NEUTROPHILS % (MAN) 91 % (42-78); TOTAL CELLS COUNTED 100
[2019-10-11 05:06] LABS: ANISOCYTOSIS SLIGHT; OVALOCYTES SLIGHT; PLATELET COMMENT ADEQUATE; POIKILOCYTOSIS SLIGHT; TOXIC GRANULATION SLIGHT; TOXIC VACUOLATION PRESENT
[2019-10-11 05:25] LABS: POTASSIUM 3.9 mmol/L (3.6-5.0)
[2019-10-11] MEDS: KETOROLAC TROMETHAMINE INJ/PF 30 MG/1 ML SDV IV PRN ×2 (05:39→11:59)
[2019-10-11] MEDS: VANCOMYCIN HCL 750 MG in DEXTROSE 5%-WATER 250 ML IV SCH (05:39)
[2019-10-11] MEDS: ENOXAPARIN SODIUM INJ 40 MG/0.4 ML DISP.SYRIN SUBCUT SCH (09:40)
[2019-10-11] MEDS: ASPIRIN 81 MG TABLET, ENT COATED PO SCH (09:40)
[2019-10-11] MEDS: LISINOPRIL 10 MG TABLET PO SCH (09:40)
[2019-10-11] MEDS: FLUTICASONE NASAL SPRAY 50 MCG/SPRY 120 SPRAY/16 GM NASL SCH ×2 (09:40→21:34)
[2019-10-11] MEDS: LEVOFLOXACIN 750 MG/D5W RTU 750 MG/150 ML RTUPB IV SCH (09:41)
--- NOTE | 2019-10-11 12:37 | PDOC PROGRESS REPORT ---
Subjective Progress Note for:: 10/11/19 Subjective:: Patient's had some Reiger's early this morning around 4 AM. Otherwise states that pain is shortness of reduced pretty much almost subsided. Still having the chills occurring intermittently. Denies abdominal pain. Reason For Visit: PYELONEPHRITIS Physical Exam Vital Signs: Temp Pulse Resp BP Pulse Ox 98.8 F 66 18 135/52 H 98 10/11/19 04:16 10/11/19 08:38 10/11/19 08:38 10/11/19 08:38 10/11/19 08:38 Intake & Output 10/10/19 10/11/19 10/12/19 06:59 06:59 06:59 Intake Total 4892 400 Output Total 800 Balance 4092 400 Weight 81.9 kg General appearance: PRESENT: no acute distress, cooperative Neck exam: ABSENT: JVD Respiratory exam: PRESENT: clear to auscultation mervin, symmetrical, tachypnea, unlabored. ABSENT: wheezes Cardiovascular exam: PRESENT: RRR, +S1, +S2. ABSENT: tachycardia GI/Abdominal exam: PRESENT: normal bowel sounds, soft. ABSENT: rebound, rigid, tenderness Neurological exam: PRESENT: alert, awake, oriented to person, oriented to place, oriented to time, oriented to situation Results Laboratory Results: 10/11/19 04:07 10/11/19 04:07 10/10/19 10/10/19 10/11/19 12:10 16:12 04:07 WBC 13.6 H RBC 2.87 L Hgb 9.3 L D Hct 26.8 L MCV 94 MCH 32.3 MCHC 34.5 RDW 14.2 H Plt Count 289 Seg Neutrophils % Not Reportable Sodium Potassium Chloride Carbon Dioxide Anion Gap BUN Creatinine Est GFR ( Amer) Glucose Lactic Acid 2.1 1.2 Calcium Phosphorus Magnesium Total Bilirubin AST Alkaline Phosphatase Total Protein Albumin 10/11/19 04:07 WBC RBC Hgb Hct MCV MCH MCHC RDW Plt Count Seg Neutrophils % Sodium 133.6 L Potassium 3.9 D Chloride 106 Carbon Dioxide 17 L Anion Gap 11 BUN 19 Creatinine 1.19 Est GFR ( Amer) > 60 Glucose 113 H Lactic Acid Calcium 7.9 L Phosphorus 2.7 Magnesium 1.7 Total Bilirubin 0.6 AST 40 Alkaline Phosphatase 56 Total Protein 5.2 L Albumin 2.5 L 10/10/19 10/10/19 11:03 16:12 Troponin I 0.013 0.017 Impressions: Chest CT 10/10/19 11:47 IMPRESSION: No acute intra-abdominal abnormality. Abdomen/Pelvis CT 10/10/19 11:48 IMPRESSION: 1. Mild bilateral inflammatory stranding of the perinephric fat and hydroureter without hydronephrosis, nephrolithiasis or ureterolithiasis. The wall of the urinary bladder is asymmetrically thickened - it is unclear if the bladder wall thickening represents the sequela of prior treatment or an acute cystitis/ascending urinary tract infection. Correlation with urinalysis is recommended. 2. 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 Assessment and Plan - Diagnosis (1) Acute pyelonephritis Is this a current diagnosis for this admission?: Yes Plan: May have been exacerbated by recent urologic manipulation Positive urinalysis with CT of the abdomen showing signs of pyelonephritis Continue Levaquin IV. Will discontinue vancomycin. Urine culture growing gram-negative kristy. Awaiting speciation. Follow-up blood cultures. Antiemetics as needed. (2) Sepsis Qualifiers: Sepsis type: sepsis due to unspecified organism Sepsis acute organ dysfunction status: without acute organ dysfunction Qualified Code(s): A41.9 - Sepsis, unspecified organism Is this a current diagnosis for this admission?: Yes Plan: Patient was actively in Rigors on admission making me suspect possible gram- negative bacteremia with sepsis especially in light of urinary tract infection. Tachycardic and with leukocytosis on admission but blood pressure stable. Adequately fluid resuscitated upon admission. Blood pressure and vitals are stable at this time. Continue IV antibiotics as above. (3) Bladder cancer Qualifiers: Bladder location: unspecified site Qualified Code(s): C67.9 - Malignant neoplasm of bladder, unspecified Is this a current diagnosis for this admission?: Yes Plan: Diagnosed 2 years ago. Partial cystectomy performed in the past. Follows with urologist Dr. Familia Mckeon where he is getting intravesicular gemcitabine every Thursday for the past few weeks. Patient will be unable to make his appointments tomorrow for gemcitabine administration and I have informed his to call to reschedule appointment. (4) Hypertension Qualifiers: Hypertension type: essential hypertension Qualified Code(s): I10 - Essential (primary) hypertension Is this a current diagnosis for this admission?: Yes Plan: Lisinopril - Time Time Spent with patient: 15-24 minutes
[2019-10-11] MEDS: TAMSULOSIN HCL 0.4 MG CAP.SR.24H PO SCH (17:35)
[2019-10-11] MEDS: TEMAZEPAM 15 MG CAPSULE PO PRN (23:45)
[2019-10-12 04:46] LABS: ANION GAP 9 (5-19); BLOOD UREA NITROGEN 21 mg/dL (7-20); CALCIUM 8.5 mg/dL (8.4-10.2); CARBON DIOXIDE 23 mmol/L (22-30); CHLORIDE 103 mmol/L (98-107); GLUCOSE 100 mg/dL (75-110)
[2019-10-12 04:56] LABS: ABSOLUTE LYMPHOCYTES (AUTO) 0.8 10^3/uL (0.5-4.7); ABSOLUTE MONOCYTES (AUTO) 1.1 10^3/uL (0.1-1.4); ABSOLUTE NEUT (AUTO) 8.5 10^3/uL (1.7-8.2); BASOPHILS % (AUTO) 0.3 % (0-2); HEMATOCRIT 28.8 % (37.9-51.0); LYMPHOCYTES % (AUTO) 7.7 % (13-45); MEAN CORPUSCULAR HEMOGLOBIN 32.2 pg (27.0-33.4); MEAN CORPUSCULAR HGB CONC 34.7 g/dL (32.0-36.0); MEAN CORPUSCULAR VOLUME 93 fl (80-97); MONOCYTES % (AUTO) 10.3 % (3-13); PLATELET COUNT 364 10^3/uL (150-450); RED CELL DISTRIBUTION WIDTH 14.3 % (11.5-14.0); SEGMENTED NEUTROPHILS % (AUTO) 81.7 % (42-78); TOTAL CELLS COUNTED % (AUTO) 100 %; WHITE BLOOD COUNT 10.4 10^3/uL (4.0-10.5)
[2019-10-12] MEDS: LEVOFLOXACIN 750 MG/D5W RTU 750 MG/150 ML RTUPB IV SCH (09:37)
[2019-10-12] MEDS: FLUTICASONE NASAL SPRAY 50 MCG/SPRY 120 SPRAY/16 GM NASL SCH ×2 (09:38→22:31)
[2019-10-12] MEDS: LISINOPRIL 10 MG TABLET PO SCH (09:38)
[2019-10-12] MEDS: ASPIRIN 81 MG TABLET, ENT COATED PO SCH (09:38)
[2019-10-12] MEDS: AMLODIPINE BESYLATE 5 MG TABLET PO SCH (09:38)
[2019-10-12] MEDS: ENOXAPARIN SODIUM INJ 40 MG/0.4 ML DISP.SYRIN SUBCUT SCH (09:38)
--- NOTE | 2019-10-12 12:29 | PDOC PROGRESS REPORT ---
Subjective Progress Note for:: 10/12/19 Subjective:: Patient says he actually feels better today. He is a little stronger although still pretty weak. He was able to sleep better last night as he was given Restoril Reason For Visit: PYELONEPHRITIS Physical Exam Vital Signs: Temp Pulse Resp BP Pulse Ox 98.3 F 77 18 133/60 H 95 10/12/19 08:40 10/12/19 08:40 10/12/19 08:40 10/12/19 08:40 10/12/19 08:40 Intake & Output 10/11/19 10/12/19 10/13/19 06:59 06:59 06:59 Intake Total 4892 3200 150 Output Total 800 400 Balance 4092 2800 150 Weight 81.9 kg 84.6 kg General appearance: PRESENT: no acute distress, well-developed Head exam: PRESENT: atraumatic, normocephalic Eye exam: PRESENT: conjunctiva pink, EOMI, PERRLA. ABSENT: scleral icterus Mouth exam: PRESENT: tongue midline Neck exam: ABSENT: carotid bruit, JVD, lymphadenopathy, thyromegaly Respiratory exam: PRESENT: clear to auscultation mervin. ABSENT: rales, rhonchi, wheezes Cardiovascular exam: PRESENT: RRR. ABSENT: diastolic murmur, rubs, systolic murmur Pulses: PRESENT: normal dorsalis pedis pul Vascular exam: PRESENT: normal capillary refill GI/Abdominal exam: PRESENT: normal bowel sounds, soft. ABSENT: distended, guarding, mass, organolmegaly, rebound, tenderness Rectal exam: PRESENT: deferred Extremities exam: PRESENT: full ROM. ABSENT: calf tenderness, clubbing, pedal edema Neurological exam: PRESENT: alert, awake, oriented to person, oriented to place, oriented to time, oriented to situation, CN II-XII grossly intact. ABSENT: motor sensory deficit Psychiatric exam: PRESENT: normal mood. ABSENT: homicidal ideation, suicidal ideation Skin exam: PRESENT: dry, intact, warm. ABSENT: cyanosis, rash Results Laboratory Results: 10/12/19 03:58 10/12/19 03:58 10/12/19 10/12/19 03:58 03:58 WBC 10.4 RBC 3.10 L Hgb 10.0 L Hct 28.8 L MCV 93 MCH 32.2 MCHC 34.7 RDW 14.3 H Plt Count 364 Seg Neutrophils % 81.7 H Sodium 134.8 L Potassium 4.0 Chloride 103 Carbon Dioxide 23 Anion Gap 9 BUN 21 H Creatinine 1.04 Est GFR ( Amer) > 60 Glucose 100 Calcium 8.5 10/10/19 11:03 Clean Catch Midstream Urine Culture - Final Klebsiella Pneumoniae 10/10/19 10/10/19 11:03 16:12 Troponin I 0.013 0.017 Impressions: Chest CT 10/10/19 11:47 IMPRESSION: No acute intra-abdominal abnormality. Abdomen/Pelvis CT 10/10/19 11:48 IMPRESSION: 1. Mild bilateral inflammatory stranding of the perinephric fat and hydroureter without hydronephrosis, nephrolithiasis or ureterolithiasis. The wall of the urinary bladder is asymmetrically thickened - it is unclear if the bladder wall thickening represents the sequela of prior treatment or an acute cystitis/ascending urinary tract infection. Correlation with urinalysis is recommended. 2. 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 Assessment and Plan - Diagnosis (1) Acute pyelonephritis Is this a current diagnosis for this admission?: Yes Plan: Urine culture yielding Klebsiella. Patient is currently on Levaquin. As it seems to be improving on this I will leave him on the Levaquin. His white count is actually come down to normal (2) Bladder cancer Qualifiers: Bladder location: unspecified site Qualified Code(s): C67.9 - Malignant neoplasm of bladder, unspecified Is this a current diagnosis for this admission?: Yes Plan: Diagnosed 2 years ago. Partial cystectomy performed in the past. Follows with urologist Dr. Familia Mckeon where he is getting intravesicular gemcitabine every Thursday for the past few weeks. Patient will be unable to make his appointments tomorrow for gemcitabine administration. Follow-up as outpatient once discharged from the hospital (3) Hypertension Qualifiers: Hypertension type: essential hypertension Qualified Code(s): I10 - Essential (primary) hypertension Is this a current diagnosis for this admission?: Yes Plan: Continue lisinopril (4) Sepsis Qualifiers: Sepsis type: sepsis due to unspecified organism Sepsis acute organ dysfunction status: without acute organ dysfunction Qualified Code(s): A41.9 - Sepsis, unspecified organism Is this a current diagnosis for this admission?: Yes Plan: Present on admission with leukocytosis, tachycardia as well as source of infection of UTI. Sepsis appears to be resolving - Time Time Spent with patient: 15-24 minutes Medications reviewed and adjusted accordingly: Yes Anticipated discharge: Home Within: within 48 hours
[2019-10-12] MEDS: ACETAMINOPHEN 325 MG TABLET PO PRN ×2 (15:53→22:30)
[2019-10-12] MEDS: TAMSULOSIN HCL 0.4 MG CAP.SR.24H PO SCH (17:38)
[2019-10-12] MEDS: TEMAZEPAM 15 MG CAPSULE PO PRN (22:30)
[2019-10-13 02:00] VITALS: BP 131/59
[2019-10-13] MEDS: AMLODIPINE BESYLATE 5 MG TABLET PO SCH (09:27)
[2019-10-13] MEDS: ASPIRIN 81 MG TABLET, ENT COATED PO SCH (09:27)
[2019-10-13] MEDS: LISINOPRIL 10 MG TABLET PO SCH (09:27)
[2019-10-13] MEDS: ENOXAPARIN SODIUM INJ 40 MG/0.4 ML DISP.SYRIN SUBCUT SCH (09:27)
[2019-10-13] MEDS: FLUTICASONE NASAL SPRAY 50 MCG/SPRY 120 SPRAY/16 GM NASL SCH (09:28)
[2019-10-13] MEDS: LEVOFLOXACIN 750 MG/D5W RTU 750 MG/150 ML RTUPB IV SCH (09:28)
--- NOTE | 2019-10-13 11:44 | PDOC DISCHARGE SUMMARY ---
Impression - Admit/DC Date/PCP Admission Date/Primary Care Provider: 10/10/19 15:07 NAWAF HERRON DO Discharge Date: 10/13/19 - Discharge Diagnosis (1) Acute pyelonephritis Is this a current diagnosis for this admission?: Yes (2) Bladder cancer Is this a current diagnosis for this admission?: Yes (3) Hypertension Is this a current diagnosis for this admission?: Yes (4) Sepsis Is this a current diagnosis for this admission?: Yes (5) Abdominal aortic aneurysm (AAA) 3.0 cm to 5.5 cm in diameter in male Is this a current diagnosis for this admission?: Yes - Additional Information Resuscitation Status: Full Code Discharge Diet: As Tolerated Discharge Activity: Activity As Tolerated, Balance Activity w/Rest Referrals: NAWAF HERRON DO [Primary Care Provider] - 10/20/19 9:30 am Prescriptions: Tamsulosin HCl [Flomax 0.4 mg Cap.sr] 0.4 mg PO PCSUPPER #30 cap.sr.24h Levofloxacin [Levaquin 500 mg Tablet] 500 mg PO DAILY #7 tablet Temazepam [Restoril 15 mg Capsule] 15 mg PO HSP PRN #10 capsule PRN Reason: Home Medications: Amlodipine Besylate [Norvasc 5 mg Tablet] 5 mg PO DAILY 10/10/19 Aspirin [Ecotrin 81 mg EC Tablet] 81 mg PO DAILY 10/10/19 Fluticasone Propionate [Flonase Nasal [place] 50 Mcg/[place] 16 gm] 1 spray NAREB DAILY 10/10/19 Lisinopril 20 mg PO DAILY 10/10/19 Multivit-Min/Folic/Vit K/Lycop [One-A-Day Men's 50 Plus Tablet] 1 each PO DAILY 10/10/19 Naproxen Sodium [Aleve] 440 mg PO DAILY 10/10/19 Oxybutynin Chloride [Oxybutynin Chloride ER] 5 mg PO DAILY 10/10/19 Tamsulosin HCl [Flomax 0.4 mg Cap.sr] 0.4 mg PO DAILY 10/10/19 Levofloxacin [Levaquin 500 mg Tablet] 500 mg PO DAILY #7 tablet 10/13/19 Tamsulosin HCl [Flomax 0.4 mg Cap.sr] 0.4 mg PO PCSUPPER #30 cap.sr.24h 10/13/19 Temazepam [Restoril 15 mg Capsule] 15 mg PO HSP PRN #10 capsule 10/13/19 History of Present Illiness History of Present Illness: ZACH DUMONT is a 74 year old male Patient was admitted to the hospital with complaints of chills myalgias and dysuria. He also had dysuria. He was found to have a urinary tract infection. Please see admitting history and physical for full details. Hospital Course Hospital Course: Patient was started on intravenous fluids. A CT scan done revealed mild inflammatory stranding of the perinephric fat and hydroureter. There was also a mild fusiform aneurysm of the infrarenal abdominal aorta measuring 3.2 x 3.2cm which is unchanged Patient does have an underlying history of bladder cancer 2 years ago. He apparently was recently treated for a urinary tract infection with nitrofurantoin which he started after a course of Bactrim. Patient urine culture did yield Klebsiella. He was treated with Levaquin intravenously and is been discharged home on oral Levaquin. . Patient was also thought to be septic with tachycardia, leukocytosis and source of infection of UTI on initial presentation. Patient will need to have his medications evaluated and his blood pressure evaluated with medication management as needed Physical Exam Vital Signs: Temp Pulse Resp BP Pulse Ox 97.6 F 80 18 131/59 H 97 10/13/19 11:09 10/13/19 11:09 10/13/19 11:09 10/13/19 11:09 10/13/19 11:09 Intake & Output 10/12/19 10/13/19 10/14/19 06:59 06:59 06:59 Intake Total 3200 1377 150 Output Total 400 900 Balance 2800 477 150 Weight 84.6 kg 83.3 kg General appearance: PRESENT: no acute distress, well-developed Head exam: PRESENT: atraumatic Respiratory exam: PRESENT: clear to auscultation mervin, unlabored Cardiovascular exam: PRESENT: RRR, +S1, +S2 GI/Abdominal exam: PRESENT: soft. ABSENT: tenderness Rectal exam: PRESENT: deferred Extremities exam: ABSENT: calf tenderness Musculoskeletal exam: PRESENT: ambulatory Neurological exam: PRESENT: alert, awake, oriented to person, oriented to place, oriented to time, oriented to situation Skin exam: ABSENT: abrasion Results Laboratory Results: WBC 10.4 10^3/uL (4.0-10.5) 10/12/19 03:58 RBC 3.10 10^6/uL (4.35-5.55) L 10/12/19 03:58 Hgb 10.0 g/dL (13.5-17.0) L 10/12/19 03:58 Hct 28.8 % (37.9-51.0) L 10/12/19 03:58 MCV 93 fl (80-97) 10/12/19 03:58 MCH 32.2 pg (27.0-33.4) 10/12/19 03:58 MCHC 34.7 g/dL (32.0-36.0) 10/12/19 03:58 RDW 14.3 % (11.5-14.0) H 10/12/19 03:58 Plt Count 364 10^3/uL (150-450) 10/12/19 03:58 Lymph % (Auto) 7.7 % (13-45) L 10/12/19 03:58 [place] % (Auto) 10.3 % (3-13) 10/12/19 03:58 Eos % (Auto) 0.0 % (0-6) 10/12/19 03:58 Baso % (Auto) 0.3 % (0-2) 10/12/19 03:58 Absolute Neuts (auto) 8.5 10^3/uL (1.7-8.2) H 10/12/19 03:58 Absolute Lymphs (auto) 0.8 10^3/uL (0.5-4.7) 10/12/19 03:58 Absolute Monos (auto) 1.1 10^3/uL (0.1-1.4) 10/12/19 03:58 Absolute Eos (auto) 0.0 10^3/uL (0.0-0.6) 10/12/19 03:58 Absolute Basos (auto) 0.0 10^3/uL (0.0-0.2) 10/12/19 03:58 Total Counted 100 10/11/19 04:07 Seg Neutrophils % 81.7 % (42-78) H 10/12/19 03:58 Seg Neuts % (Manual) 91 % (42-78) H 10/11/19 04:07 Band Neutrophils % 1 % (3-5) L 10/10/19 11:03 Lymphocytes % (Manual) 2 % (13-45) L 10/11/19 04:07 Monocytes % (Manual) 7 % (3-13) 10/11/19 04:07 Eosinophils % (Manual) 0 % (0-6) 10/11/19 04:07 Basophils % (Manual) 0 % (0-2) 10/11/19 04:07 Abs Neuts (Manual) 12.4 10^3/uL (1.7-8.2) H 10/11/19 04:07 Abs Lymphs (Manual) 0.3 10^3/uL (0.5-4.7) L 10/11/19 04:07 Abs Monocytes (Manual) 1.0 10^3/uL (0.1-1.4) 10/11/19 04:07 Absolute Eos (Manual) 0.0 10^3/uL (0.0-0.6) 10/11/19 04:07 Abs Basophils (Manual) 0.0 10^3/uL (0.0-0.2) 10/11/19 04:07 Toxic Granulation SLIGHT 10/11/19 04:07 Toxic Vacuolation PRESENT 10/11/19 04:07 Large Platelets PRESENT 10/10/19 11:03 Platelet Comment ADEQUATE 10/11/19 04:07 Poikilocytosis SLIGHT 10/11/19 04:07 Anisocytosis SLIGHT 10/11/19 04:07 Ovalocytes SLIGHT 10/11/19 04:07 Sodium 134.8 mmol/L (137-145) L 10/12/19 03:58 Potassium 4.0 mmol/L (3.6-5.0) 10/12/19 03:58 Chloride 103 mmol/L (98-107) 10/12/19 03:58 Carbon Dioxide 23 mmol/L (22-30) 10/12/19 03:58 Anion Gap 9 (5-19) 10/12/19 03:58 BUN 21 mg/dL (7-20) H 10/12/19 03:58 Creatinine 1.04 mg/dL (0.52-1.25) 10/12/19 03:58 Est GFR ( Amer) > 60 (>60) 10/12/19 03:58 Est GFR (MDRD) Non-Af > 60 (>60) 10/12/19 03:58 Glucose 100 mg/dL (75-110) 10/12/19 03:58 Lactic Acid 1.2 mmol/L (0.7-2.1) 10/10/19 16:12 Calcium 8.5 mg/dL (8.4-10.2) 10/12/19 03:58 Phosphorus 2.7 mg/dL (2.5-4.5) 10/11/19 04:07 Magnesium 1.7 mg/dL (1.6-2.3) 10/11/19 04:07 Total Bilirubin 0.6 mg/dL (0.2-1.3) 10/11/19 04:07 Direct Bilirubin 0.4 mg/dL (0.0-0.4) 10/11/19 04:07 Neonat Total Bilirubin Not Reportable 10/11/19 04:07 Neonat Direct Bilirubin Not Reportable 10/11/19 04:07 Neonat Indirect Bili Not Reportable 10/11/19 04:07 AST 40 U/L (17-59) 10/11/19 04:07 ALT 54 U/L (<50) H 10/11/19 04:07 Alkaline Phosphatase 56 U/L (38-126) 10/11/19 04:07 Troponin I 0.017 ng/mL 10/10/19 16:12 Total Protein 5.2 g/dL (6.3-8.2) L 10/11/19 04:07 Albumin 2.5 g/dL (3.5-5.0) L 10/11/19 04:07 Urine Color YELLOW 10/10/19 11:03 Urine Appearance CLOUDY 10/10/19 11:03 Urine pH 6.0 (5.0-9.0) 10/10/19 11:03 Ur Specific [place] 1.014 10/10/19 11:03 Urine Protein 100 mg/dL (NEGATIVE) H 10/10/19 11:03 Urine Glucose (UA) NEGATIVE mg/dL (NEGATIVE) 10/10/19 11:03 Urine Ketones TRACE mg/dL (NEGATIVE) H 10/10/19 11:03 Urine Blood MODERATE (NEGATIVE) H 10/10/19 11:03 Urine Nitrite NEGATIVE (NEGATIVE) 10/10/19 11:03 Urine Bilirubin NEGATIVE (NEGATIVE) 10/10/19 11:03 Urine Urobilinogen NEGATIVE mg/dL (<2.0) 10/10/19 11:03 Ur Leukocyte Esterase LARGE (NEGATIVE) H 10/10/19 11:03 Urine WBC (Auto) >182 /HPF 10/10/19 11:03 Urine RBC (Auto) 12 /HPF 10/10/19 11:03 Urine Bacteria (Auto) 3+ /HPF 10/10/19 11:03 Urine WBC Clumps MANY /HPF 10/10/19 11:03 Squamous Epi Cells Auto 3 /HPF 10/10/19 11:03 U Non-Squamous Epis Auto 4 /HPF 10/10/19 11:03 Urine Mucus (Auto) OCC /LPF 10/10/19 11:03 Urine Ascorbic Acid NEGATIVE (NEGATIVE) 10/10/19 11:03 10/10/19 10/10/19 11:03 16:12 Troponin I 0.013 0.017 Impressions: Chest CT 10/10/19 11:47 IMPRESSION: No acute intra-abdominal abnormality. Abdomen/Pelvis CT 10/10/19 11:48 IMPRESSION: 1. Mild bilateral inflammatory stranding of the perinephric fat and hydroureter without hydronephrosis, nephrolithiasis or ureterolithiasis. The wall of the urinary bladder is asymmetrically thickened - it is unclear if the bladder wall thickening represents the sequela of prior treatment or an acute cystitis/ascending urinary tract infection. Correlation with urinalysis is re commended. 2. 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 Plan Time Spent: Greater than 30 Minutes Stroke Is this a Stroke Patient?: No Acute Heart Failure - Is this a Heart Failure Patient?: No
== END 2019-10-13 12:01 | disposition home or self-care (01) | DRG 872 ==
LOC: ER 10:10 → EH 13:47 → OBSVTOIN 15:07 → 5 17:57
PROVIDERS: ADMIT Internal Medicine; ATTEND Internal Medicine
DX: A41.89 Other specified sepsis (principal); N10 Acute pyelonephritis; C67.9 Malignant neoplasm of bladder, unspecified; I10 Essential (primary) hypertension; I71.4 Abdominal aortic aneurysm, without rupture; Z79.82 Long term (current) use of aspirin; B96.1 Klebsiella pneumoniae [K. pneumoniae] as the cause of diseases classified elsewhere; Z79.899 Other long term (current) drug therapy; E78.5 Hyperlipidemia, unspecified; M19.90 Unspecified osteoarthritis, unspecified site; Z96.659 Presence of unspecified artificial knee joint; Z87.891 Personal history of nicotine dependence; Z82.49 Family history of ischemic heart disease and other diseases of the circulatory system
CPT/HCPCS: 36415; 71260; 74177; 80048; 80053; 81001; 83605; 83735; 84100; 84484; 85025; 87040; 87086; 87088; 87186; 93005; 93010; 96361; 96365; 96366; 96367; 96375; 96376; 99285; J0696; J1650; J1885; J1956; J2405; J3010; J3370; J3490; J7030; J7060